=== PATIENT | male | born 1975 | race Caucasian/White ===

== ENCOUNTER 2021-10-09 15:41 | Inpatient (IN) | payer MEDICAID ==
[~2021-10-09] VITALS: Ht 170.2 cm; Wt 101.2 kg
[2021-10-09] MEDS ORDERED: NITROGLYCERIN OINT 1GM/INCH UDPKT TD ONE (16:45)
[2021-10-09] MEDS ORDERED: ASPIRIN 81MG TABLET PO ONE (16:45)
[2021-10-09] MEDS ORDERED: NITROGLYCERIN 0.4MG TABLET SL SL ONE (16:45)
[2021-10-09 17:03] LABS: BASOPHILS % 0.8 % (0.0-2.0); EOSINOPHILS % 0.7 % (0.0-5.0); HEMATOCRIT. 44.6 % (42.0-52.0); HEMOGLOBIN. 15.4 g/dL (14.0-18.0); LYMPHOCYTES % 19.1 % (20.0-50.0); MEAN CORPUSCULAR HEMOGLOBIN 28.6 pg (28.0-32.0); MONOCYTES % 8.3 % (2.0-8.0); NEUTROPHILS % 71.1 % (40.0-76.0); PLATELET 283 x1000/uL (130-400); RED BLOOD CELL COUNT 5.38 mill/uL (4.7-6.1); RED CELL DISTRIBUTION WIDTH 13.3 % (11.6-14.6)
[2021-10-09 17:09] LABS: CHLORIDE 106 mEq/L (98-107)
[2021-10-09] MEDS ORDERED: NITROGLYCERIN 50MG PREMIX 250 ML IV ONE (17:30)
[2021-10-09] MEDS ORDERED: HEPARIN XX SCH (18:00)
[2021-10-09] MEDS ORDERED: ONDANSETRON HCL 4MG/2ML INJ IV PRN (18:00)
[2021-10-09] MEDS ORDERED: POTASSIUM CHLORIDE 10MEQ TABLET SR PO NR (18:30)
[2021-10-09] MEDS ORDERED: HEPARIN BOLUS PRN aPTT <30 IV (18:30)
[2021-10-09] MEDS ORDERED: HEPARIN 25,000 UNITS PREMIX 250 ML IV SCH (18:30)
[2021-10-09] MEDS ORDERED: HEPARIN BOLUS PRN aPTT 30-44 IV (18:30)
[2021-10-09 19:24] LABS: PROTHROMBIN TIME 10.3 sec (9.6-11.0)
[2021-10-09] MEDS ORDERED: HEPARIN 60 UNITS/KG BOLUS IV NR (19:30)
[2021-10-09] MEDS ORDERED: HEPARIN 25,000 UNITS in DEXT 5% WATER 245 ML IV SCH (19:45)
[2021-10-09] MEDS: ACETAMINOPHEN 325MG TABLET PO PRN (22:17)
[2021-10-09] MEDS: ATORVASTATIN CALCIUM 40MG TABLET PO SCH (22:17)
[2021-10-10] VITALS (10 sets, daily range): BP systolic 118–158; BP diastolic 57–91
[2021-10-10] MEDS: ACETAMINOPHEN 325MG TABLET PO PRN (03:48)
[2021-10-10] MEDS: ASPIRIN 81MG EC TABLET PO SCH (07:46)
[2021-10-10 09:42] LABS: BASOPHILS % 0.5 % (0.0-2.0); EOSINOPHILS % 1.2 % (0.0-5.0); HEMATOCRIT. 43.6 % (42.0-52.0); HEMOGLOBIN. 14.6 g/dL (14.0-18.0); LYMPHOCYTES % 23.2 % (20.0-50.0); MEAN CORPUSCULAR HEMOGLOBIN 28.2 pg (28.0-32.0); MEAN CORPUSCULAR VOLUME 84.3 fL (80.0-94.0); MEAN PLATELET VOLUME 8.4 fl (7.4-10.4); MONOCYTES % 8.6 % (2.0-8.0); NEUTROPHILS % 66.5 % (40.0-76.0); PLATELET 258 x1000/uL (130-400); RED BLOOD CELL COUNT 5.17 mill/uL (4.7-6.1); RED CELL DISTRIBUTION WIDTH 13.2 % (11.6-14.6)
[2021-10-10 09:51] LABS: CHLORIDE 111 mEq/L (98-107)
[2021-10-10 09:58] LABS: LDL CHOLESTEROL 154 mg/dL (5-100)
[2021-10-10 09:59] LABS: HDL CHOLESTEROL 44 mg/dL (40-59)
[2021-10-10] MEDS: AMLODIPINE 2.5MG TABLET PO SCH ×2 (12:13→20:18)
[2021-10-10] MEDS: ENOXAPARIN 100MG/ML SYR SUBCUT SCH ×2 (12:14→20:18)
[2021-10-10] MEDS: ATORVASTATIN CALCIUM 40MG TABLET PO SCH (20:18)
[2021-10-11] VITALS (12 sets, daily range): BP systolic 126–142; BP diastolic 56–99
[2021-10-11 06:09] LABS: BASOPHILS % 1.1 % (0.0-2.0); CHLORIDE 110 mEq/L (98-107); EOSINOPHILS % 1.8 % (0.0-5.0); HEMATOCRIT. 43.8 % (42.0-52.0); HEMOGLOBIN. 14.9 g/dL (14.0-18.0); LYMPHOCYTES % 34.9 % (20.0-50.0); MEAN CORPUSCULAR HEMOGLOBIN 28.4 pg (28.0-32.0); MEAN CORPUSCULAR VOLUME 83.4 fL (80.0-94.0); MEAN PLATELET VOLUME 8.2 fl (7.4-10.4); MONOCYTES % 11.3 % (2.0-8.0); NEUTROPHILS % 50.9 % (40.0-76.0); PLATELET 250 x1000/uL (130-400); RED BLOOD CELL COUNT 5.25 mill/uL (4.7-6.1)
[2021-10-11] MEDS ORDERED: REGADENOSON 0.4 MG/5 ML IV NR (10:15)
[2021-10-11] MEDS: AMLODIPINE 2.5MG TABLET PO SCH ×2 (10:19→21:10)
[2021-10-11] MEDS: ASPIRIN 81MG EC TABLET PO SCH (10:19)
[2021-10-11] MEDS: ENOXAPARIN 30MG/0.3ML SYR SUBCUT SCH ×2 (12:06→21:11)
[2021-10-11] MEDS: ATORVASTATIN CALCIUM 40MG TABLET PO SCH (21:10)
[2021-10-11] MEDS: ACETAMINOPHEN 325MG TABLET PO PRN (21:12)
[2021-10-12] VITALS (10 sets, daily range): BP systolic 110–148; BP diastolic 54–91
[2021-10-12 06:44] LABS: CHLORIDE 109 mEq/L (98-107)
[2021-10-12] MEDS: ASPIRIN 81MG EC TABLET PO SCH (08:16)
[2021-10-12] MEDS: AMLODIPINE 2.5MG TABLET PO SCH (08:16)
[2021-10-12] MEDS ORDERED: REGADENOSON 0.4 MG/5 ML IV ONE (09:36)
[2021-10-12] MEDS: ENOXAPARIN 30MG/0.3ML SYR SUBCUT SCH (11:58)
[2021-10-12] MEDS ORDERED: LIP40 PO (13:08)
[2021-10-12] MEDS ORDERED: ASPI-1406 PO (13:08)
[2021-10-12] MEDS ORDERED: AMLO2.5T45 PO (13:08)
== END 2021-10-12 16:49 | disposition home or self-care (01) | DRG 199 ==
LOC: ER 15:41 → 3WST 17:42 → CANRESERV 20:51 → ENRESERV 20:51 → EDBEDREQSVC 22:09 → EDBEDREQTM 22:19 → EDBEDREQSVC 22:19 → EDBEDREQTM 22:22 → ENRESERV 10-10 01:55 → EDBEDREQTM 10-10 01:56 → EDBEDREQSVC 10-10 01:56 → EDBEDREQDT 10-10 01:56
PROVIDERS: ADMIT Family Medicine Adult Medicine; ATTEND Family Medicine Adult Medicine
DX: I16.1 Hypertensive emergency (principal); I20.0 Unstable angina; I10 Essential (primary) hypertension; R00.1 Bradycardia, unspecified
CPT/HCPCS: 36415; 71045; 78452; 80048; 80053; 80061; 83880; 84484; 85025; 93005; 93017; 93306; 99291; A9500; J1644; J1650; J2785; J3490; J7060